=== PATIENT | female | born 1955 | race Two or more races ===

== ENCOUNTER 2020-04-19 13:47 | Emergency (ER) | payer MEDICARE, MEDICAID ==
[~2020-04-19] VITALS: Ht 160 cm; Wt 59.0 kg
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
[2020-04-19 15:04] LABS: BASOPHILS % (AUTO) 1 % (0-1); EOSINOPHILS % (AUTO) 4 % (1-7); LYMPHOCYTES % (AUTO) 30 % (22-44); MEAN CORPUSCULAR HGB CONC 34.1 g/dL (32.4-35.8); MEAN PLATELET VOLUME 8.2 fL (7.4-10.4); MONOCYTES % (AUTO) 9 % (2-9); NEUTROPHILS % (AUTO) 56 % (42-75); PLATELET COUNT 232 x10^3/uL (130-400); RED BLOOD COUNT 4.26 x10^6/uL (3.82-5.3)
--- NOTE | 2020-04-19 15:06 | NUR ---
PT DRINKING WATER W/OUT DIFFICULTY. SPEECH CLEAR. SITTER IN ROOM. INITIAL CT'S DONE. PT GOING TO XR PER [facility].
[2020-04-19 15:09] LABS: ALBUMIN 3.7 g/dL (3.4-5.0); ANION GAP 6 mmol/L (5-15); CALCIUM 8.9 mg/dL (8.5-10.1); CHLORIDE 109 mmol/L (98-107); CREATININE 0.76 mg/dL (0.55-1.02); MD NO
[2020-04-19] MEDS ORDERED: DILT240C2 PO (15:38)
[2020-04-19] MEDS ORDERED: CLON0.2T PO (15:38)
[2020-04-19] MEDS ORDERED: TIOT18CA INH (15:38)
[2020-04-19] MEDS ORDERED: CYCL-259 PO (15:38)
[2020-04-19] MEDS ORDERED: LISI-424 PO (15:38)
[2020-04-19] MEDS ORDERED: FLUT1BLS IH (15:38)
[2020-04-19] MEDS ORDERED: ALBU90AE IH (15:38)
[2020-04-19] MEDS ORDERED: OXYGEN NAS (15:38)
[2020-04-19] MEDS ORDERED: MELO7.5T5 PO (15:38)
[2020-04-19] MEDS ORDERED: DUO NEB (15:38)
--- NOTE | 2020-04-19 16:23 | NUR ---
PT HAVING ANIMATED CONVERSTATION W/ SITTER; BOTH ARE LAUGHING
--- NOTE | 2020-04-19 16:25 | NUR ---
PT TO BE DC'D; PT & SITTER WILL REQUIRE TRANSPORT TO [place].
--- NOTE | 2020-04-19 16:40 | NUR ---
CALLING [facility] TO GIVE PT REPORT
[2020-04-19 16:44] VITALS: BP 144/92
--- NOTE | 2020-04-19 16:45 | NUR ---
CALLING [facility], AGAIN, TO GIVE REPORT.
--- NOTE | 2020-04-19 16:50 | NUR ---
PT REPORT TO JUST[facility] AT [facility].
--- NOTE | 2020-04-19 16:53 | NUR ---
PT ENDORSED TO ZHEN OCHOA RN.
--- NOTE | 2020-04-19 17:41 | NUR ---
PT AWAITING [facility] TRANSPORT
--- NOTE | 2020-04-19 18:21 | NUR ---
PT AMBULATORY IN ED TX ROOM. REQUESTING [facility]; WILL NOTIFY [facility]. PT NOTIFIED THAT SHE'S STILL WAITING FOR [facility] TRANSPORT; UNDERSTANDING VERBALIZED. SITTER IN ROOM.
--- NOTE | 2020-04-19 18:35 | NUR ---
[facility] HERE FOR PT TRANSPORT TO [place]
== END 2020-04-19 18:47 ==
LOC: ED 17:15
DX: S13.4XXA Sprain of ligaments of cervical spine, initial encounter (principal); S33.5XXA Sprain of ligaments of lumbar spine, initial encounter; S80.02XA Contusion of left knee, initial encounter; S80.01XA Contusion of right knee, initial encounter; S00.93XA Contusion of unspecified part of head, initial encounter; R51.9 Headache, unspecified; R55 Syncope and collapse; X58.XXXA Exposure to other specified factors, initial encounter; Y93.89 Activity, other specified; Y92.89 Other specified places as the place of occurrence of the external cause; Y99.8 Other external cause status
CPT/HCPCS: 36415; 70450; 72110; 72125; 80048; 82040; 85025; 93005; 99285